=== PATIENT | female | born 1990 | race Caucasian/White ===

== ENCOUNTER 2018-01-28 02:00 | Emergency (ER) | payer OTHER ==
[~2018-01-28] VITALS: Ht 157.5 cm; Wt 50.0 kg
[2018-01-28 02:07] VITALS: BP 106/56; PULSE 85; RESP 18; TEMP 98.1; O2SAT 99
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
[2018-01-28] MEDS ORDERED: IBUPROFEN 800 MG TAB PO ONE (03:45)
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
== END 2018-01-28 06:54 | disposition home or self-care (01) ==
LOC: NEPD 02:00
DX: S39.012A Strain of muscle, fascia and tendon of lower back, initial encounter (principal); V89.2XXA Person injured in unspecified motor-vehicle accident, traffic, initial encounter; J45.909 Unspecified asthma, uncomplicated
CPT/HCPCS: 72100; 99283